=== PATIENT | female | born 1995 | race African-American/Black ===

== ENCOUNTER 2022-11-16 14:07 | Emergency (ER) | payer MEDICAID, OTHER ==
[~2022-11-16] VITALS: Ht 162.6 cm; Wt 87.5 kg
[2022-11-16 14:29] VITALS: BP 129/81; PULSE 82; RESP 18; TEMP 99.1; O2SAT 99
[2022-11-16] MEDS ORDERED: DICL500C MT (16:58)
== END 2022-11-16 17:45 | disposition home or self-care (01) ==
LOC: ER 14:07
DX: N61.0 Mastitis without abscess (principal); N60.41 Mammary duct ectasia of right breast
CPT/HCPCS: 99283